=== PATIENT | male | born 1985 | race Hispanic/Latino ===

== ENCOUNTER 2018-09-23 20:44 | Emergency (ER) | payer OTHER, BC ==
[2018-09-23 21:01] VITALS: BP 145/95; PULSE 89; RESP 18; TEMP 98.5; O2SAT 99
--- NOTE | 2018-09-23 21:40 | ED PDOC ---
HPI: General Adult Time Seen by Provider: 09/23/18 21:06 Chief Complaint (Nursing): Foreign Body Chief Complaint (Provider): body fluid exposure History Per: Patient History/Exam Limitations: no limitations Onset/Duration Of Symptoms: Hrs (10) Additional Complaint(s): 33 y/o male presents for evaluation of body fluid exposure x 10 hours. 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 Patient states he immediately flushed his eyes out. Source patient denies history of HIV or hepatitis, was agreeable to blood test and awaiting results. Patient denies headache, vision changes, discharge from eye. Past Medical History Reviewed: Historical Data, Nursing Documentation, Vital Signs Vital Signs: Last Vital Signs Temp 98.5 F 09/23/18 20:59 Pulse 89 09/23/18 20:59 Resp 18 09/23/18 20:59 BP 145/95 H 09/23/18 20:59 Pulse Ox 99 09/23/18 20:59 - Medical History PMH: No Chronic Diseases - Surgical History Surgical History: No Surg Hx - Family History Family History: States: No Known Family Hx - Living Arrangements Living Arrangements: With Family - Home Medications Home Medications: Ambulatory Orders Medication Instructions Recorded Dolutegravir Sodium [Tivicay] 50 mg PO DAILY #28 tab 09/23/18 Emtricitabine/Tenofovir Diso 1 tab PO DAILY #28 tab 09/23/18 [Truvada 200 MG-300 MG] - Allergies Allergies/Adverse Reactions: Allergies Allergy/AdvReac Type Severity Reaction Status Date / Time banana Allergy ANAPHYLAXIS Verified 09/23/18 20:58 [email or web address] Allergy ANAPHYLAXIS Verified 09/23/18 20:58 [email or web address] Allergy ANAPHYLAXIS Uncoded 09/23/18 20:58 Review of Systems ROS Statement: Except As Marked, All Systems Reviewed And Found Negative Physical Exam - Reviewed Nursing Documentation Reviewed: Yes Vital Signs Reviewed: Yes - Physical Exam Appears: Positive for: Well, Non-toxic, No Acute Distress Head Exam: Positive for: ATRAUMATIC, NORMAL INSPECTION, NORMOCEPHALIC Skin: Positive for: Normal Color Eye Exam: Positive for: Normal appearance, EOMI, PERRL. Negative for: Periorbital swelling, Periorbital tenderness, Conjunctival injection ENT: Positive for: Normal ENT Inspection Cardiovascular/Chest: Positive for: Regular Rate, Rhythm Respiratory: Positive for: Normal Breath Sounds Extremity: Positive for: Normal ROM Neurologic/Psych: Positive for: Alert, Oriented (x3) - ECG O2 Sat by Pulse Oximetry: 99 - Progress ED Course And Treament: -rapid HIV -hepatitis panel -liver profile Patient educated on PEP and low risk for transmission via stated mechanism; requesting rx in case source patient testing comes back positive rx truvada, tivicay given Advised follow up PMD within 2-3 days Return precautions given Disposition - Clinical Impression Clinical Impression: Exposure to blood or body fluid - Patient ED Disposition Is Patient to be Admitted: No Counseled Patient/Family Regarding: Studies Performed, Diagnosis, Need For Followup, Rx Given - Disposition Disposition: Routine/Home Disposition Time: 21:41 Condition: STABLE Prescriptions: Dolutegravir Sodium [Tivicay] 50 mg PO DAILY #28 tab Emtricitabine/Tenofovir Diso [Truvada 200 MG-300 MG] 1 tab PO DAILY #28 tab Instructions: Blood or Body Fluid Exposure
[2018-09-23 22:12] LABS: ALB/GLOB RATIO 1.5 (1.0-2.1); ALBUMIN 5.1 g/dL (3.5-5.0); BILIRUBIN,DIRECT 0.2 mg/ml (0.0-0.4)
[2018-09-24 12:42] LABS: HEPATITIS B SURFACE AG Negative (NEGATIVE)
[2018-09-24 12:48] LABS: HEPATITIS A IGM NEGATIVE (NEGATIVE); HEPATITIS B CORE AB NEGATIVE (NEGATIVE)
[2018-09-24 12:59] LABS: HEPATITIS C ANTIBODY NEGATIVE (NEGATIVE)
== END 2018-09-23 21:50 | disposition home or self-care (01) ==
LOC: H.ER 20:44
DX: Z77.21 Contact with and (suspected) exposure to potentially hazardous body fluids (principal)